=== PATIENT | female | born 1985 | race Caucasian/White ===

== ENCOUNTER 2018-01-26 21:51 | Emergency (ER) | payer BC ==
[~2018-01-26] VITALS: Ht 165.1 cm; Wt 61.2 kg
[2018-01-26] MEDS ORDERED: RESTASIS1 EACH OPHTHALMIC (22:00)
[2018-01-26] MEDS ORDERED: KEPPRA 500 MG500 M1 PO (22:00)
[2018-01-26] MEDS ORDERED: NORCO 5-325 TA1 EACH PO (23:38)
[2018-01-26 23:48] VITALS: BP 109/69
== END 2018-01-26 23:49 | disposition home or self-care (01) ==
LOC: M.ERS 21:51
DX: S62.615A Displaced fracture of proximal phalanx of left ring finger, initial encounter for closed fracture (principal); X58.XXXA Exposure to other specified factors, initial encounter; Y93.66 Activity, soccer; Y92.89 Other specified places as the place of occurrence of the external cause; Y99.8 Other external cause status